=== PATIENT | male | born 1985 | race Two or more races ===

== ENCOUNTER 2024-12-11 09:36 | Emergency (ER) | payer BC, SELFPAY ==
[2024-12-11 09:41] VITALS: BP 154/97; PULSE 65; RESP 18; TEMP 36.6; O2SAT 98; BMI 32.6
--- NOTE | 2024-12-11 09:54 | XR_ITS ---
Examination: Shoulder,left, 3 views Technique: Shoulder AP internal rotation, AP external rotation, Y view shoulder, 3 views Exam date and time :December 11, 2024 0954 hours INDICATIONS: Weight lifting injury to the shoulder 5 months ago, shoulder pain. FINDINGS: No shoulder fracture or dislocation Mild to moderate narrowing glenohumeral joint Mild shoulder calcific tendinitis IMPRESSION: Mild to moderate narrowing glenohumeral joint Mild left shoulder calcific tendinitis
[2024-12-11] MEDS: KETOROLAC INJ 30 MG/ML VIAL IM (10:00)
--- NOTE | 2024-12-11 11:03 | EDNOTE_ITS ---
Upper Extremity Injury RME/HPI General Chief Complaint: Extremity Injury, Upper Stated Complaint: LEFT SHOULDER PAIN TEAR FROM GYM Time Seen by Provider: 12/11/24 09:39 Arrival date/time: 12/11/24 09:36 39-year-old male presents emergency department today for complaint of left shoulder pain patient reports pain ongoing intermittently since July worse for the last couple of days Limitations: no limitations Related Data Previous Rx's ?Medication ?Instructions ?Recorded Sulfamethoxazole/Trimethoprim 1 tab PO Q12HR #20 tabs 05/25/13 (Bactrim Ds) cyclobenzaprine 10 mg tablet 10 mg PO TID PRN muscle s pasm 10 12/11/24 days #30 tab-caps ibuprofen 800 mg tablet 800 mg PO TID PRN pain #30 t abs 12/11/24 Allergies Allergy/AdvReac Type Severity Reaction Status Date / Time NKA* Allergy Uncoded 12/11/24 09:40 Review of Systems Review of Systems Systems Reviewed: All systems reviewed, normal except as documented Constitutional Constitutional: Reports system reviewed and no additional complaints, except as documented, Denies fever(s) and Denies headache(s) Eyes Eyes: Reports system reviewed and no additional complaints, except as documented and Denies blurry vision ENT Ears, Nose, Mouth, and Throat: Reports system reviewed and no additional complaints, except as documented, Denies headache(s), Denies nasal congestion and Denies nasal discharge Cardiovascular Cardiovascular: Reports system reviewed and no additional complaints, except as documented, Denies chest pain and Denies dyspnea Respiratory Respiratory: Reports system reviewed and no additional complaints, except as documented, Denies chest congestion, Denies cough and Denies dyspnea Gastrointestinal Gastrointestinal: Reports system reviewed and no additional complaints, except as documented and Denies abdominal pain Musculoskeletal Musculoskeletal: Reports system reviewed and no additional complaints, except as documented, Denies deformity, Denies numbness, Reports stiffness and Denies tingling Integumentary/Breasts Skin/Breast: Reports system reviewed and no additional complaints, except as documented and Denies rash Neurologic Neurologic: Reports system reviewed and no additional complaints, except as documented, Reports as per HPI, Denies headache(s), Denies numbness and Denies tingling Past Medical History Social History SMOKING STATUS: Never smoker ED Exam General Limitations: Present no limitations General appearance: Present alert and in no apparent distress Head Head exam: Present atraumatic Eye Eye exam: Present normal appearance, PERRL and EOMI ENT ENT exam: Present normal exam, normal oropharynx and mucous membranes moist Neck Neck exam: Present normal inspection, full ROM and trachea midline Chest Chest inspection: Present normal inspection and symmetric chest wall rise Respiratory Respiratory exam: Present normal lung sounds bilaterally Cardiovascular Cardiovascular exam: Present regular rate, normal rhythm and normal heart sounds Abdominal Exam Abdominal exam: Present soft and normal bowel sounds Extremities Exam Extremities exam: Present normal inspection, full ROM and tenderness; Absent joint swelling or calf tenderness Back Exam Back exam: Present normal inspection and full ROM Neurological Exam Neurological exam: Present alert, oriented X3, CN II-XII intact, normal gait and reflexes normal; Absent motor sensory deficit Psychiatric Psychiatric exam: Present normal affect and normal mood Skin Skin exam: Present warm, dry, intact and normal color Course Quality Measures none Orders Category Date Time Status XR shoulder LT min 2V Stat Exams 12/11/24 09:54 Completed Ketorolac Inj [Toradol Inj] Med 12/11/24 09:54 Discontinued 30 mg IM X1 ONE Vital Signs Vital signs: Vital Signs Temperature 97.8 F 12/11/24 09:41 Pulse Rate 65 12/11/24 09:41 Respiratory Rate 18 12/11/24 09:41 Blood Pressure 154/97 H 12/11/24 09:41 Pulse Oximetry (%) 98 12/11/24 09:41 Oxygen Delivery Method Room Air 12/11/24 09:41 O2 saturation 98% room air within normal limits Extremity Injury MDM Narrative MDM Narrative:: 39-year-old male presents emergency department today for complaint of left shoulder pain patient reports pain ongoing intermittently since July worse for the last couple of days On exam patient well-appearing patient does not appear toxic in no acute distress Imaging left shoulder obtained patient has calcific tendinitis consistent with symptoms Patient has full range of motion of left shoulder but reports pain significantly with movement Patient given pain medication discharged home Explained to the patient needs to follow-up with PCP and request outpatient MRI patient states understanding Patient data External records reviewed:: [facility] previous records Clinical information provided by:: patient Social determinants that could affect healthcare access:: none Patient has the following chronic illnesses:: None How is presenting disease/condition affected by chronic disease/condition?: no chronic disease Evaluation data The following diagnostics were reviewed and interpreted by me:: radiology exam(s) Lab and/or radiology exams considered but not ordered:: Radiology Interpretation Summary: Read by me Medications / Prescriptions Medications or Prescriptions considered but not ordered:: Given Medication administrations:: Medication Administration History Discontinued Medications Ketorolac Tromethamine (Ketorolac Inj 30 Mg/Ml Vial) 30 mg IM X1 ONE Stop: 12/11/24 09:55 Last Admin: 12/11/24 10:00 Dose: 30 mg Documented By: SKYE Given Consultations Consultation(s) initiated? (list below): No Diagnosis Upper Extremity Injury Differential Diagnosis: other (Shoulder fracture, shoulder sprain, calcific tendinitis) Most likely diagnosis given after review of the tests above:: Calcific tendinitis Admission Indicated Admission indicated?: not indicated Admission Request Was there a request for admission?: No Disposition Plan Disposition Plan: Discharge Discharge Attestation Discharge Attestation: The patient and all family members were given an opportunity to ask questions and understood the discharge instructions. Discharge instructions specifically effects, indications for sooner follow up or return to the emergency department, and the expected course of current diagnosis. Patient condition: Stable Discharge Plan Plan Patient Disposition: HOME (Self Care) Discharge Disposition comment: Stable Prescriptions/Referrals Prescriptions/Med Rec: New cyclobenzaprine 10 mg tablet 10 mg PO TID PRN (Reason: muscle spasm) 10 Days Qty: 30 0RF ibuprofen 800 mg tablet 800 mg PO TID PRN (Reason: pain) Qty: 30 0RF No Action Sulfamethoxazole/Trimethoprim (Bactrim Ds) 1 EACH tablet 1 tab PO Q12HR Qty: 20 0RF Referrals: No Primary/Family,Physician [Primary Care Provider] - 12/12/24 Problem List Clinical Impression: Left shoulder pain, Calcific tendinitis of left shoulder Patient/Caregiver Discharge Instructions Education Materials: ED Arthralgia Additional Instructions: Please follow up with your primary care doctor in the next 24-48hrs for any worsening symptoms return here immediately Please request outpatient MRI from your PCP for further evaluation of your left shoulder Print Language: Somali Stand Alone Forms: Sarai Award Info., Work/School Release, Patient Portal Info Letter PA/CRISTHIAN Supervising Physician JODIE/CRISTHIAN Supervising Physician: Dr. frye
== END 2024-12-11 11:30 | disposition home or self-care (01) ==
PROVIDERS: Emergency Provider Emergency Medicine
DX: M75.32 Calcific tendinitis of left shoulder (principal)
CPT/HCPCS: 73030; 96372; 99283; J1885